=== PATIENT | female | born 1965 | race Caucasian/White ===

== ENCOUNTER 2022-03-13 11:51 | Emergency (ER) | payer OTHER, SELFPAY ==
--- NOTE | ~2022-03-13 | XR_ITS ---
EXAMINATION: XR shoulder RT min 2V DATE: 03/13/2022 13:39 INDICATION: Right shoulder pain TECHNIQUE: AP internally and externally rotated, AP oblique externally rotated and transscapular Y vi ews of the right shoulder were obtained. COMPARISON: None FINDINGS: Normal alignment. There is an age-indeterminate shallow Hill-Sachs fracture trough at the posterolate ral aspect of the humeral head consistent with a prior anterior glenohumeral dislocation. No other fr actures identified. Glenohumeral joint is normal. Mild acromioclavicular osteoarthritis. Soft tissues are unremarkable. Visualized portions of the right lung are clear. IMPRESSION: Age-indeterminate small Hill-Sachs fracture at the posterolateral aspect of the humeral head consiste nt with a prior anterior glenohumeral dislocation. Correlate with clinical history. Reviewed, dictated and finalized at location A. IMPRESSION: Age-indeterminate small Hill-Sachs fracture at the posterolateral aspect of the humeral head consistent with a prior anterior glenohumeral dislocation. Correl ate with clinical history.
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
--- NOTE | ~2022-03-13 | XR_ITS ---
EXAMINATION: XR shoulder LT min 2V DATE: 03/13/2022 13:39 INDICATION: Left shoulder pain. TECHNIQUE: 4 views of left shoulder were obtained. COMPARISON: None. FINDINGS: Bone alignment is normal. There is a nondisplaced transverse fracture involving middle thir d of left clavicle. There is moderate osteoarthritis of the acromioclavicular joint. Glenohumeral maria m nt is normal. IMPRESSION: 1. Nondisplaced transverse fracture involving middle third of left clavicle. Reviewed, dictated and finalized at location A.
--- NOTE | ~2022-03-13 | XR_ITS ---
[id number] 03/13/2022 13:02 Indication: Neck pain Procedure: 4 view cervical spine Comparison: No prior studies for comparison. Findings: There is mild spondylosis at C6-7. No fracture, subluxation or dislocation. Lung apices are normal. Odontoid process is normal. Impression: 1: No acute abnormality of the cervical spine. Reviewed, dictated and finalized at location A. Impression: 1: No acute abnormality of the cervical spine.
[2022-03-13 12:26] VITALS: BP 128/84; PULSE 86; RESP 18; TEMP 36.7; O2SAT 99
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
[2022-03-13] MEDS: ACETAMINOPHEN 325 MG TABLET 650 MG PO (13:28)
[2022-03-13] MEDS: IBUPROFEN 600 MG TABLET PO (13:28)
== END 2022-03-13 16:01 | disposition home or self-care (01) ==
PROVIDERS: Emergency Provider Emergency Medicine; PCP Internal Medicine
DX: S42.025A Nondisplaced fracture of shaft of left clavicle, initial encounter for closed fracture (principal); R93.6 Abnormal findings on diagnostic imaging of limbs; M16.11 Unilateral primary osteoarthritis, right hip; V49.40XA Driver injured in collision with unspecified motor vehicles in traffic accident, initial encounter
CPT/HCPCS: 71046; 72040; 73030; 73502; 99284; A4565; A9270